=== PATIENT | male | born 1945 | race Caucasian/White ===

== ENCOUNTER → 2016-09-06 | Outpatient (CLI) | payer MEDICARE, BC ==
[2016-09-06 08:56] LABS: ABSOLUTE EOSINOPHILS # (AUTO) 0.2 10^3/uL (0.0-0.6); ABSOLUTE LYMPHOCYTES (AUTO) 0.7 10^3/uL (0.5-4.7); ABSOLUTE MONOCYTES (AUTO) 0.8 10^3/uL (0.1-1.4); ABSOLUTE NEUT (AUTO) 3.2 10^3/uL (1.7-8.2); BASOPHILS % (AUTO) 0.4 % (0-2); EOSINOPHILS % (AUTO) 3.4 % (0-6); HEMATOCRIT 39.2 % (37.9-51.0); HEMOGLOBIN 12.9 g/dL (13.5-17.0); HGB HCT DIFFERENCE -0.5; LYMPHOCYTES % (AUTO) 15.2 % (13-45); MEAN CORPUSCULAR HEMOGLOBIN 30.1 pg (27.0-33.4); MEAN CORPUSCULAR HGB CONC 32.8 g/dL (32.0-36.0); MEAN CORPUSCULAR VOLUME 92 fl (80-97); RED BLOOD COUNT 4.28 10^6/uL (4.35-5.55); RED CELL DISTRIBUTION WIDTH 15.2 % (11.5-14.0); WHITE BLOOD COUNT 4.9 10^3/uL (4.0-10.5)
[2016-09-06 09:20] LABS: ALANINE AMINOTRANSFERASE 40 U/L (21-72); ALBUMIN 3.9 g/dL (3.5-5.0); ALKALINE PHOSPHATASE 93 U/L (38-126); ANION GAP 9 (5-19); ASPARTATE AMINO TRANSFERASE 34 U/L (17-59); BILIRUBIN,DIRECT 0.3 mg/dL (0.0-0.4); BILIRUBIN,TOTAL 0.8 mg/dL (0.2-1.3); BLOOD UREA NITROGEN 21 mg/dL (7-20); CALCIUM 9.6 mg/dL (8.4-10.2); CARBON DIOXIDE 29 mmol/L (22-30); CHLORIDE 100 mmol/L (98-107); CHOLESTEROL 117.51 mg/dL (0-200); CREATININE RESULT 1.07 mg/dL (0.52-1.25); Direct HDL 47 mg/dL (>40); GLUCOSE 109 mg/dL (75-110); POTASSIUM 4.1 mmol/L (3.6-5.0); SODIUM 137.8 mmol/L (137-145); TOTAL PROTEIN 6.3 g/dL (6.3-8.2); TRIGLYCERIDES 110 mg/dL (<150)
[2016-09-06 09:31] LABS: DIRECT LDL 44 mg/dL (<100)
== END ==
LOC: OD 08:20
PROVIDERS: ATTEND Internal Medicine
DX: R53.83 Other fatigue (principal); I10 Essential (primary) hypertension; E78.5 Hyperlipidemia, unspecified; R35.1 Nocturia; C85.90 Non-Hodgkin lymphoma, unspecified, unspecified site
CPT/HCPCS: 36415; 80053; 80061; 84153; 84443; 85025

== ENCOUNTER 2016-09-18 07:13 | Day surgery (SDC) | payer MEDICARE, BC ==
[2016-09-18] MEDS ORDERED: ONDANSETRON HCL INJ/PF 4 MG/2 ML SDV ONE (07:40)
[2016-09-18] MEDS ORDERED: NALOXONE HCL INJ/PF 0.4 MG/1 ML SDV ONE (07:40)
[2016-09-18] MEDS ORDERED: FLUMAZENIL INJ 0.5 MG/5 ML VIAL IV ONE (07:41)
[2016-09-18] MEDS ORDERED: EPINEPHRINE INJ 1 MG/10 ML DISP.SYRIN ONE (07:41)
[2016-09-18] MEDS ORDERED: GLUCAGON,HUMAN RECOMB 1 MG INJ ONE (07:41)
[2016-09-18] MEDS ORDERED: FENTANYL CITRATE INJ/PF 100 MCG/2 ML AMPUL ONE (07:41)
[2016-09-18] MEDS: MIDAZOLAM 2 MG/2 ML INJ ONE ×3 (08:34→08:45)
--- NOTE | 2016-09-18 09:41 | Operative Report ---
Operative Report DATE OF SURGERY: 09/18/16 PREOPERATIVE DIAGNOSIS: Bowel habit changes POSTOPERATIVE DIAGNOSIS: Cecal masses. Sigmoid diverticulosis. OPERATION: Colonoscopy with biopsy of cecal masses. SURGEON: JACKIE MICHAEL ANESTHESIA: Moderate Sedation TISSUE REMOVED OR ALTERED: Cecal masses COMPLICATIONS: None ESTIMATED BLOOD LOSS: Minimal INTRAOPERATIVE FINDINGS: Viable mass at the ileocecal junction and another mass adjacent to it both measuring about 4-5 cm in size. PROCEDURE: Informed consent was obtained. Patient was brought to the endoscopy suite. IV sedation with Versed and fentanyl was administered. Digital rectal exam revealed no palpable perianal masses. Endoscope was passed via the patient's anus it was fed to the cecum. The ileocecal valve appeared very prominent with a masslike effect with friability. The terminal ileum was able to be intubated for about 3 or 4 cm only. The inflammation appeared to extend to the terminal ileum but the more proximal area that I saw appeared relatively normal. But again I could not see much of the terminal ileum. Biopsies were taken at the ileocecal valve. Adjacent to the ileocecal valve there was a similar appearing friable mass. These masses measured about 4-5 cm each. Multiple biopsies were taken. The scope was withdrawn and the remainder of the colon was visualized. The bowel prep was good visualization was good. The right colon, transverse colon, and the descending colon were all normal. Sigmoid colon had scattered diverticuli. Rectum appeared normal. Patient tolerated procedure well with no apparent complications and was taken to the recovery area in stable condition.
--- NOTE | 2016-09-18 09:43 | PDOC DISCHARGE SUMMARY ---
Discharge Summary (SDC) - Discharge Final Diagnosis: Cecal masses Date of Surgery: 09/18/16 Discharge Date: 09/18/16 Condition: Good Treatment or Instructions: Colonoscopy with biopsies. Follow-up with me on Saturday. Discharge Diet: As Tolerated Discharge Activity: Activity As Tolerated Report the Following to Your Physician Immediately: Increase in Pain, Unusual Bleeding
[2016-09-18 10:13] VITALS: BP 115/59
== END 2016-09-18 10:20 | disposition home or self-care (01) ==
LOC: END 07:13
PROVIDERS: ATTEND Surgery
PROC: 0DBH8ZX Excision of Cecum, Via Natural or Artificial Opening Endoscopic, Diagnostic (ICD-10-PCS; principal; 2016-09-18 08:15)
DX: K63.89 Other specified diseases of intestine (principal); K57.30 Diverticulosis of large intestine without perforation or abscess without bleeding; E78.00 Pure hypercholesterolemia, unspecified; I10 Essential (primary) hypertension; Z85.72 Personal history of non-Hodgkin lymphomas; Z79.899 Other long term (current) drug therapy
CPT/HCPCS: 45380; 88342 ×2; 88341 ×2; 88305 ×2; J2250; J3010; J0171; J1610; J2310; J2405; J3490

== ENCOUNTER 2017-09-05 08:18 | Day surgery (SDC) | payer MEDICARE, BC ==
[~2017-09-05 08:18] MED LIST: DIPHENHYDRAMINE HCL 50 MG/ML VIAL ONE; EPINEPHRINE INJ 1 MG/10 ML DISP.SYRIN ONE; FENTANYL CITRATE INJ/PF 100 MCG/2 ML AMPUL ONE; FLUMAZENIL INJ 0.5 MG/5 ML VIAL ONE; GLUCAGON,HUMAN RECOMB 1 MG INJ ONE; MIDAZOLAM 2 MG/2 ML INJ ONE; NALOXONE HCL INJ/PF 0.4 MG/1 ML SDV ONE; ONDANSETRON HCL INJ/PF 4 MG/2 ML SDV ONE
[2017-09-05] MEDS: MIDAZOLAM 2 MG/2 ML INJ ONE ×3 (09:01→09:11)
--- NOTE | 2017-09-05 09:53 | Discharge Summary ---
Discharge Summary (SDC) - Discharge Final Diagnosis: 1. B-cell lymphoma 2. Cecal mass Date of Surgery: 09/05/17 Discharge Date: 09/05/17 Condition: Good Treatment or Instructions: [place] [id number] POST ENDOSCOPY DISCHARGE INSTRUCTIONS 1. Diet: Start clear liquids that a regular diet as tolerated. 2. Resume all preoperative medications. All oral anticoagulants and aspirins can be resumed 24 hours after procedure. 3. If a polypectomy was performed some bleeding per rectum may occur. This should stop within 3 days. If not, please contact the office. 4. If you had a colonoscopy you may experience some bloating and delayed return of normal bowel function for several days, your regular bowel movement pattern should resume within a week. 5. Please contact [facility] at to make an appointment with Dr. Patterson for 1 to 3 weeks following procedure. 6. If you have any questions or concerns regarding your care,treatment plan or follow up, please contact our office. 7. Per clinical guidelines we recommend you undergo a repeat colonoscopy in 3 years or sooner pending final path report. Referrals: ADALBERTO KIM MD [Primary Care Provider] - Discharge Diet: As Tolerated Discharge Activity: Activity As Tolerated Home Care Assistance: None Needed Report the Following to Your Physician Immediately: Shortness of Breath, Increase in Pain, Fever over 101 Degrees
--- NOTE | 2017-09-05 10:07 | Operative Report ---
Operative Report DATE OF SURGERY: 09/05/17 PREOPERATIVE DIAGNOSIS: 1. History of B-cell lymphoma. 2. History of cecal lymphoma POSTOPERATIVE DIAGNOSIS: Same; sigmoid diverticulosis; prominent anal mucosal veins OPERATION: 1. Total colonoscopy to cecum with photodocumentation. 2. Biopsies of ileocecal valve. 3. Biopsies of cecal wall SURGEON: GILL HERNANDEZ ANESTHESIA: Moderate Sedation TISSUE REMOVED OR ALTERED: Biopsies of mucosal COMPLICATIONS: None ESTIMATED BLOOD LOSS: Scant INTRAOPERATIVE FINDINGS: See below PROCEDURE: Obtaining informed consent the patient was taken from the preoperative holding area to the main endoscopy suite where monitoring devices were attached to the patient. Plan and surgical timeout were conducted The patient was placed in the left lateral decubitus position with knees to chest. A perianal examination was performed. There was no visible or palpable anorectal pathology. Sphincter tone was felt to be normal. The flexible pediatric colonoscope was advanced through the anal rectal canal, all the way to the cecum. Visualization of the cecum was achieved and the ileocecal valve as well as transillumination of the anterior abdominal wall. This was an excellent study on the well-prepped bowel. There was bilious drainage coming out of the ileocecal valve. The valve appeared grossly normal. The opposing wall of the cecum was lobulated with friable tissue. Of note 2 weeks ago the patient's platelets were 76. We irrigated and suctioned some residuals cecum and then performed cold forceps biopsies of the inferior side of the ileocecal valve, and 2 biopsies of the lobulated mucosa of the cecal wall. Bleeding was minimal. There was no discrete exophytic mass. The colonoscope was withdrawn slowly and methodically checked and the mucosa carefully. There was no evidence of tumor, stricture, bleeding or polyp. There were scattered diverticulosis of the sigmoid colon The scope was slowly withdrawn through the anal rectal canal. Complete visualization of the rectum was achieved with photodocumentation. The scope was withdrawn to the patient's anus. In the anal canal, the submucosal venous plexus was prominent. The patient tolerated the procedure well and was taken to the recovery area in stable condition. The interval for surveillance colonoscopy will be dictated by the final path report.
[2017-09-05 10:35] VITALS: BP 115/58
== END 2017-09-05 10:45 | disposition home or self-care (01) ==
LOC: END 08:18
PROVIDERS: ATTEND Surgery
DX: K52.9 Noninfective gastroenteritis and colitis, unspecified (principal); R93.3 Abnormal findings on diagnostic imaging of other parts of digestive tract; K57.30 Diverticulosis of large intestine without perforation or abscess without bleeding; C85.90 Non-Hodgkin lymphoma, unspecified, unspecified site; I10 Essential (primary) hypertension; E78.00 Pure hypercholesterolemia, unspecified; R19.8 Other specified symptoms and signs involving the digestive system and abdomen
CPT/HCPCS: 45380; 88305 ×2; J2250; J3010; J0171; J1200; J1610; J2310; J2405; J3490

== ENCOUNTER 2018-02-01 12:01 | Emergency (ER) | payer MEDICARE, BC ==
[2018-02-01] MEDS ORDERED: NORMAL SALINE 1000 ML 1,000 ML IV ONE (13:00)
[2018-02-01] MEDS ORDERED: DEXTROSE 10%-WATER 1,000 ML IV ONE (13:11)
[2018-02-01] MEDS ORDERED: DEXTROSE 50%-WATER 25 GM/50 ML DISP.SYRIN IV ONE ×2 (13:13→13:55)
[2018-02-01] MEDS ORDERED: NORMAL SALINE 500 ML IV PRN (13:56)
--- NOTE | 2018-02-01 14:02 | RADIOLOGY REPORT (SQ) ---
EXAM DESCRIPTION: CHEST SINGLE VIEW COMPLETED DATE/TIME: 02/01/2018 1:14 pm REASON FOR STUDY: Hypoglycemia, recent pneumonia. COMPARISON: 07/12/2014 EXAM PARAMETERS: NUMBER OF VIEWS: One view. TECHNIQUE: Single frontal radiographic view of the chest acquired. RADIATION DOSE: NA LIMITATIONS: None. FINDINGS: LUNGS AND PLEURA: Increased interstitial markings are seen at the lung bases; a retrocardi ac opacity may be present. A small right-sided pleural effusion is present. MEDIASTINUM AND HILAR STRUCTURES: No masses. Contour normal. HEART AND VASCULAR STRUCTURES: Heart normal in size. Normal vasculature. BONES: There appears to be a subacute fracture of the right 7th rib posteriorly. Bilateral acromiocl avicular arthropathy is present. HARDWARE: Re- demonstration the right sided Port-A-Cath. An additional vascular catheter appears to be left subclavian approach ; the tip is not discretely visualized due to under penetration of the ba se of the heart. OTHER: No other significant finding. IMPRESSION: Increased interstitial markings at the lung bases with a possible retrocardiac opacity m ay represent new, residual, or recurrent pneumonia. Other chronic and incidental findings as detaile d above. TECHNICAL DOCUMENTATION: JOB ID: [id number] [employer]- All Rights Reserved Reading location - IP/workstation name: [email or web address]
[2018-02-01 14:09] LABS: APPEARANCE,URINE CLEAR; BILIRUBIN,URINE NEGATIVE (NEGATIVE); COLOR,URINE YELLOW; GLUCOSE, URINE NEGATIVE (NEGATIVE); KETONES,URINE NEGATIVE (NEGATIVE); LEUKOCYTE ESTERASE,URINE NEGATIVE (NEGATIVE); NITRITE,URINE NEGATIVE (NEGATIVE); PROTEIN,URINE NEGATIVE (NEGATIVE); URINE SPECIFIC GRAVITY 1.014; UROBILINOGEN,URINE NEGATIVE mg/dL (<2.0)
[2018-02-01 14:29] LABS: HEMATOCRIT 26.2 % (37.9-51.0); HEMOGLOBIN 8.5 g/dL (13.5-17.0); MEAN CORPUSCULAR HEMOGLOBIN 29.9 pg (27.0-33.4); MEAN CORPUSCULAR HGB CONC 32.7 g/dL (32.0-36.0); MEAN CORPUSCULAR VOLUME 92 fl (80-97); RED BLOOD COUNT 2.86 10^6/uL (4.35-5.55); RED CELL DISTRIBUTION WIDTH 22.3 % (11.5-14.0); WHITE BLOOD COUNT 4.8 10^3/uL (4.0-10.5)
[2018-02-01 14:30] LABS: ALANINE AMINOTRANSFERASE 23 U/L (21-72); ALBUMIN 2.6 g/dL (3.5-5.0); ALKALINE PHOSPHATASE 129 U/L (38-126); ANION GAP 14 (5-19); ASPARTATE AMINO TRANSFERASE 33 U/L (17-59); BILIRUBIN,DIRECT 0.2 mg/dL (0.0-0.4); BILIRUBIN,TOTAL 0.2 mg/dL (0.2-1.3); BLOOD UREA NITROGEN 20 mg/dL (7-20); CALCIUM 8.3 mg/dL (8.4-10.2); CARBON DIOXIDE 25 mmol/L (22-30); CHLORIDE 93 mmol/L (98-107); GLUCOSE 116 mg/dL (75-110); POTASSIUM 4.3 mmol/L (3.6-5.0); SODIUM 131.7 mmol/L (137-145)
[2018-02-01 14:43] LABS: PLATELET COUNT 51 10^3/uL (150-450)
[2018-02-01 14:49] LABS: ABSOLUTE LYMPHOCYTES# (MANUAL) 0.3 10^3/uL (0.5-4.7); ABSOLUTE MONOCYTES # (MANUAL) 0.3 10^3/uL (0.1-1.4); ABSOLUTE NEUTROPHILS# (MANUAL) 4.2 10^3/uL (1.7-8.2); BAND NEUTROPHILS % (MANUAL) 2 % (3-5); BASOPHILS % (MANUAL) 0 % (0-2); EOSINOPHILS % (MANUAL) 0 % (0-6); LYMPHOCYTES % (MANUAL) 6 % (13-45); MONOCYTES % (MANUAL) 6 % (3-13); SEGMENTED NEUTROPHILS % (MAN) 86 % (42-78); TOTAL CELLS COUNTED 100
[2018-02-01 14:54] LABS: ANISOCYTOSIS 3+; BURR CELLS 1+; OVALOCYTES 1+; PLATELET COMMENT DECREASED; POIKILOCYTOSIS 2+; TEAR DROP CELLS SLIGHT; TOXIC GRANULATION 2+
--- NOTE | 2018-02-01 15:25 | ER Document Report ---
ED General - General Chief Complaint: Altered Mental Status Stated Complaint: GENERAL WEAKNESS Time Seen by Provider: 02/01/18 12:57 Notes: Today, patient was acting very agitated and speaking as if he was talking in gibberish and could not communicate with his family members. EMS was called to the scene and found his blood sugar to be 23. Also, on his monitor with EMS, he a run of atrial fibrillation. He was given D10 and his blood sugar came up to 145. Here in this emergency department, his blood sugar dropped back down below and we gave him additional D10 and this happened another time we gave him some D50. Patient is not on any blood lowering medications. Not known to be diabetic. Family thinks it may be that the patient has not been eating and drinking like he is supposed to be. He is supposed to be drinking 3-4 containers of Boost a day in addition to what ever he can eat of regular food. Also, his activity level has increased significantly since he got home in just 2 days ago. Even though he uses a walker, he has been walking around and ambulating much more than he was previously doing. He was fine yesterday. Denies any nausea or vomiting. Has not had any fever. Patient was recently an inpatient at [facility] for 3 weeks with a pneumonia due to Yisel Cardia and also had Norovirus. After a 3-week stay at [facility] for the pneumonia, he was sent to a rehab facility where he spent another 3 weeks and then was released home just 3 days ago. He is still currently on Bactrim and azithromycin. Patient is a survivor from non-Hodgkin's lymphoma. He had stem cell transplant in November 2016. TRAVEL OUTSIDE OF THE [place] IN LAST 30 DAYS: No - Related Data Allergies/Adverse Reactions: Corticosteroids (Glucocorticoids) Allergy (Severe, Verified 02/02/18 06:27) CANNOT HAVE DUE TO EXPERIMENTAL TREATMENT CURRENTLY RECEIVIN promethazine [From Phenergan] Allergy (Intermediate, Verified 02/02/18 06:27) Confusion Past Medical History - Social History Smoking Status: Unknown if Ever Smoked Family History: Reviewed & Not Pertinent Pulmonary Medical History: Reports: Hx Pneumonia Neurological Medical History: Denies: Hx Cerebrovascular Accident Endocrine Medical History: Denies: Hx Diabetes Mellitus Type 1, Hx Diabetes Mellitus Type 2 Malignancy Medical History: Reports Hx Lymphoma - NonHodgkins Musculoskeletal Medical History: Denies Hx Arthritis - Immunizations Hx Diphtheria, Pertussis, Tetanus Vaccination: No Review of Systems - Review of Systems Notes: REVIEW OF SYSTEMS: CONSTITUTIONAL : Denies fever. EENT: Denies eye, ear, nose or mouth or throat pain or other symptoms. CARDIOVASCULAR: Denies chest pain. RESPIRATORY: Denies cough, chest congestion, or shortness of breath. GASTROINTESTINAL: Denies abdominal pain or nausea, vomiting, or diarrhea. GENITOURINARY: Denies difficulty or painful urinating, urinary frequency, blood in urine. MUSCULOSKELETAL: Denies back or neck pain. Denies joint pain or swelling. SKIN: Denies rash or skin lesions. NEUROLOGICAL: See HPI. ALL OTHER SYSTEMS REVIEWED AND NEGATIVE. Physical Exam - Vital signs Vitals: BP 89/66 L 02/01/18 12:05 Interpretation: Normal, Hypotensive - Minimal at 89/66. Responded well to fluids. - Notes Notes: PHYSICAL EXAMINATION: GENERAL: Well-appearing, in no acute distress. Blood pressure at times is borderline with a systolic slightly below 100. HEAD: Atraumatic, normocephalic. EYES: Pupils equal round and reactive to light, extraocular movements intact. ENT: oropharynx clear without exudates. Moist mucous membranes. Hard of hearing. NECK: Normal range of motion, supple. LUNGS: Breath sounds clear and equal bilaterally. HEART: Regular rate and rhythm without murmurs. ABDOMEN: Soft, nontender. No guarding or rebound. No masses. BACK: No tenderness throughout entire back. EXTREMITIES: Normal range of motion without pain. NEUROLOGICAL: Hard of hearing. Normal sensory, motor, and reflex exams. Awake , alert, and oriented x3. PSYCH: Normal mood, normal affect. SKIN: Warm, dry, no rashes. Course - Re-evaluation Re-evalutation: 02/01/18 21:58 Patient was able to drink a container of Boost and drank a couple of cups of orange juice. After that, his blood sugars stabilized and did not drop any more. Patient's vital signs were now normal with a blood pressure above 100 systolic. Family is comfortable that the patient has improved and stabilized. They feel that his low blood sugars related to his poor oral intake and his unusual activity level compared to his recent activities. No evidence of any significant infections anywhere. - Vital Signs Vital signs: Temp Pulse Resp BP Pulse Ox 98.1 F 82 16 98/60 L 100 02/01/18 15:55 02/01/18 15:55 02/01/18 15:55 02/01/18 15:55 02/01/18 15:55 - Laboratory Result Diagrams: 02/01/18 12:15 02/01/18 12:15 Laboratory results interpreted by me: 02/01/18 02/01/18 02/01/18 12:15 12:15 13:08 RBC 2.86 L Hgb 8.5 L Hct 26.2 L RDW 22.3 H Plt Count 51 L Seg Neuts % (Manual) 86 H Band Neutrophils % 2 L Lymphocytes % (Manual) 6 L Abs Lymphs (Manual) 0.3 L Sodium 131.7 L Chloride 93 L Creatinine 1.34 H Est GFR (Non-Af Amer) 53 L Glucose 116 H POC Glucose 46 L Calcium 8.3 L Alkaline Phosphatase 129 H Total Protein 5.0 L Albumin 2.6 L 02/01/18 02/01/18 14:04 15:27 RBC Hgb Hct RDW Plt Count Seg Neuts % (Manual) Band Neutrophils % Lymphocytes % (Manual) Abs Lymphs (Manual) Sodium Chloride Creatinine Est GFR (Non-Af Amer) Glucose POC Glucose 138 H 117 H Calcium Alkaline Phosphatase Total Protein Albumin - Diagnostic Test Radiology results interpreted by me: 02/01/18 21:59 Chest x-ray is essentially normal. Some scar tissue present. No acute infiltrates. Discharge - Discharge Clinical Impression: Hypoglycemia, Dehydration Hypotension Qualifiers: Hypotension type: unspecified hypotension type Qualified Code(s): I95.9 - Hypotension, unspecified Condition: Stable Disposition: HOME, SELF-CARE Additional Instructions: Hypoglycemia You have suffered an episode of hypoglycemia (low blood sugar). Typical symptoms of hypoglycemia are shaking, sweating, headache, and confusion. When severe, unconsciousness or seizure may occur. Hypoglycemia occurs when a person taking insulin or diabetes pills has a change in the amount of blood sugar available -- due to exercise, decreased food intake, or alcohol. Should you feel symptoms of hypoglycemia again, immediately take some form of sugar such as sweetened juice. As the reaction subsides, eat a complex carbohydrate such as bread. If possible, check your blood sugar using a chemical strip. If episodes are occurring without obvious explanation, contact your physician for further evaluation. Dehydration Dehydration can result from vomiting or diarrhea, fever, or decreased intake of fluids. If severe, hospitalization and intravenous fluids may be required. Most cases are treated at home with fluids by mouth. For the next 24 hours, drink lots of clear fluids. In mild cases, this can be soda pop or sports drinks. For more severe dehydration, the doctor may recommend special fluids such as Pedialyte or Lytren. Try to get three liters ( 3 quarts) of fluid per day. If vomiting occurs, continue to drink the fluids frequently (every 15 to 20 minutes), but in small amounts (one or two ounces). Depending on the type of dehydration, the doctor may prescribe antinausea medicine or potassium replacements. Call the doctor or return for re-examination if you become progressively weak, vomit repeatedly, or have other new symptoms. Hypotension Your blood pressure is low. Low blood pressure can make you feel weak, lightheaded, and even make you pass out. Low blood pressure can be caused by dehydration or blood loss. Problems with the heart, kidneys, or blood vessels can cause hypotension. Certain medications can make your blood pressure abnormally low. Infection can lower blood pressure. In many cases, the person is totally healthy, but for unknown reasons, the blood pressure falls when they stand up. This is called benign orthostatic hypotension. The treatment of low blood pressure depends on the severity of the symptoms , and on the underlying cause. Sometimes it's not possible to identify a cause. At this time, it doesn't appear that the problem is serious enough to require hospitalization. Medicines that could be contributing to the problem can be withheld or reduced in dosage if your doctor approves. Get plenty of fluids. Eat a healthy diet. Be careful to stand up slowly. If you feel suddenly lightheaded or if your vision goes corona, sit or lie down at once. Don't drive or operate machinery until the symptoms are under control. Return or call the doctor if you develop fainting or severe dizziness, severe weakness, problems with vision, chest pain, shortness of breath, fever, or confusion. FOLLOW-UP CARE: If you have been referred to a physician for follow-up care, call the physician s office for an appointment as you were instructed or within the next two days. If you experience worsening or a significant change in your symptoms, notify the physician immediately or return to the Emergency Department at any time for re-evaluation. Drink plenty of fluids, especially fluids with sugar in them. Discontinue taking the 20 mg of Lasix at bedtime. Continue to take all of the other medications you are currently taking Follow-up with your doctor on Saturday with all the lab results that I have provided to you. Return if you develop new symptoms or worsening symptoms or current drops in blood sugar. Referrals: ADALBERTO KIM MD [Primary Care Provider] - Follow up as needed
[2018-02-01 15:57] VITALS: BP 98/60
--- NOTE | 2018-02-01 22:41 | EKG REPORT ---
SEVERITY:- BORDERLINE ECG - SINUS RHYTHM BORDERLINE T WAVE ABNORMALITIES : Confirmed by: Carlos Boo MD 01-Feb-2018 22:40:48
== END 2018-02-01 15:55 | disposition home or self-care (01) ==
LOC: ER 12:01
DX: E16.2 Hypoglycemia, unspecified (principal); I95.9 Hypotension, unspecified; E86.0 Dehydration; J15.8 Pneumonia due to other specified bacteria; Z85.72 Personal history of non-Hodgkin lymphomas; Z88.8 Allergy status to other drugs, medicaments and biological substances
CPT/HCPCS: 93005; 99285; 96361; 96374; 36415; 82962; 85025; 80053; 81001; 71045; 93010; J3490; J7040

== ENCOUNTER 2018-02-02 05:45 | Emergency (ER) | payer MEDICARE, BC ==
[2018-02-02] MEDS ORDERED: NORMAL SALINE 1000 ML 1,000 ML IV ONE ×2 (06:17→07:08)
--- NOTE | 2018-02-02 06:23 | ER Document Report ---
ED General - General Chief Complaint: Low Blood Sugar Stated Complaint: LOW BLOOD SUGAR Time Seen by Provider: 02/02/18 06:04 Notes: 72-year-old male brought to the emergency department for hypoglycemia. He was seen in the emergency department yesterday for similar. Patient's states that he was talking "gibberish" yesterday when glucose noted to be low. Today he was difficult to arouse. She checked his blood sugar and found it to be 29. She states that she gave some sugar. EMS was contacted. When they arrived 10 g of dextrose was given. Blood sugar was rechecked and found to be 79. An additional 25 g of dextrose was given. Family states that the patient has not been eating like he supposed to. He'll have a few ensure per day but isn't supplementing with food. Patient has a history of non-Hodgkin's lymphoma and is being followed up at [facility] by Dr. Phan, oncology. states that the patient was recently inpatient for 3 weeks for pneumonia. [facility]. He was just released to home 3 days ago. 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 denies a history of diabetes. He is not on any diabetic medications. Patient was found to be in atrial fibrillation on arrival. states no history of atrial fibrillation. TRAVEL OUTSIDE OF THE [place] IN LAST 30 DAYS: No - HPI Onset: Just prior to arrival Onset/Duration: Sudden Quality of pain: No pain Severity: Severe Associated symptoms: None Exacerbated by: Denies Relieved by: Food Similar symptoms previously: Yes Recently seen / treated by doctor: Yes - Related Data Allergies/Adverse Reactions: Corticosteroids (Glucocorticoids) Allergy (Severe, Verified 02/02/18 06:27) CANNOT HAVE DUE TO EXPERIMENTAL TREATMENT CURRENTLY RECEIVIN promethazine [From Phenergan] Allergy (Intermediate, Verified 02/02/18 06:27) Confusion Past Medical History - General Information source: Patient - Social History Smoking Status: Former Smoker Family History: Reviewed & Not Pertinent - Past Medical History Cardiac Medical History: Reports: Hx Hypercholesterolemia Denies: Hx Coronary Artery Disease, Hx Heart Attack, Hx Hypertension - 2005 Pulmonary Medical History: Reports: Hx Pneumonia - nocardia Denies: Hx Asthma, Hx Bronchitis, Hx COPD Neurological Medical History: Denies: Hx Cerebrovascular Accident, Hx Seizures Renal/ Medical History: Denies: Hx Peritoneal Dialysis Musculoskeletal Medical History: Denies Hx Arthritis Past Surgical History: Reports: Hx Appendectomy, Hx Tonsillectomy - Immunizations Hx Diphtheria, Pertussis, Tetanus Vaccination: No Review of Systems - Review of Systems Constitutional: No symptoms reported EENT: No symptoms reported Cardiovascular: No symptoms reported Respiratory: No symptoms reported Gastrointestinal: No symptoms reported Genitourinary: No symptoms reported Male Genitourinary: No symptoms reported Musculoskeletal: No symptoms reported Skin: No symptoms reported Hematologic/Lymphatic: No symptoms reported Neurological/Psychological: Other - altered mental status -: Yes All other systems reviewed and negative Physical Exam - Vital signs Vitals: Temp Pulse Resp BP Pulse Ox 97.9 F 140 H 36 H 92/65 L 94 02/02/18 05:47 02/02/18 05:47 02/02/18 05:47 02/02/18 05:47 02/02/18 05:47 - Notes Notes: PHYSICAL EXAMINATION: GENERAL: Frail. Cachetic. HEAD: Atraumatic, Orientated to person and place. EYES: Pupils equal round and reactive to light, extraocular movements intact, sclera anicteric, conjunctiva are normal. ENT: Nares patent, oropharynx clear without exudates. Moist mucous membranes. NECK: Normal range of motion, supple without lymphadenopathy LUNGS: Breath sounds clear to auscultation bilaterally and equal. No wheezes rales or rhonchi. HEART: Regular rate and rhythm without murmurs ABDOMEN: Soft, nontender, nondistended abdomen. No guarding, no rebound. No masses appreciated. Musculoskeletal: Normal range of motion, no pitting or edema. No cyanosis. NEUROLOGICAL: Cranial nerves grossly intact. Normal speech, normal gait. Normal sensory, motor exams PSYCH: Normal mood, normal affect. SKIN: Warm, Dry, normal turgor, no rashes or lesions noted. Course - Re-evaluation Re-evalutation: 02/02/18 06:23 EKG: Ventricular rate 143, QRS duration 92, QTc 457, atrial fibrillation. No ST segment elevation. 02/02/18 07:32 Blood sugar rechecked. Now in the 50s. 1amp of D50 ordered. 02/02/18 10:12 Patient drank orange juice and ensure. Blood sugar now in the 170s. Patient given 2L of fluids and 15mg of cardizem for atrial fibrillation. Patient now rate controlled in the 90s. Has been hypotensive around 90-100 systolic. Patient more awake, alert per family. Contacted [facility] for transfer per patient request and lack of GI coverage. Spoke with Dr. Gaines. She's agreeable with accepting the transfer. Patient currently stable. 02/02/18 10:46 02/02/18 15:52 Patient currently eating [employer] in the room. Family state that he's acting like his normal self now. Patient has no complaints. Accuchecks have been obtained regularly and have been within normal limits. The patient's heart rate has been controlled after 15mg of cardizem. Still borderline hypotensive. Patient has a bed at [facility]. Transport arranged. Patient turned over to Dr. Stewart. 02/02/18 16:00 - Vital Signs Vital signs: Temp Pulse Resp BP Pulse Ox 98.5 F 91 23 H 94/55 L 94 02/02/18 11:38 02/02/18 14:00 02/02/18 15:43 02/02/18 14:00 02/02/18 15:43 - Laboratory Result Diagrams: 02/02/18 06:20 02/02/18 06:20 Laboratory results interpreted by me: 02/02/18 02/02/18 02/02/18 06:20 06:20 07:30 RBC 2.87 L Hgb 8.6 L Hct 26.7 L RDW 23.1 H Plt Count 46 L Seg Neuts % (Manual) 81 H Lymphocytes % (Manual) 8 L Sodium 130.4 L Chloride 91 L BUN 23 H Creatinine 1.26 H Est GFR (Non-Af Amer) 57 L POC Glucose 53 L Alkaline Phosphatase 132 H Total Protein 5.2 L Albumin 2.9 L Urine Protein 02/02/18 02/02/18 02/02/18 08:07 09:07 09:40 RBC Hgb Hct RDW Plt Count Seg Neuts % (Manual) Lymphocytes % (Manual) Sodium Chloride BUN Creatinine Est GFR (Non-Af Amer) POC Glucose 64 L 139 H Alkaline Phosphatase Total Protein Albumin Urine Protein 30 H 02/02/18 02/02/18 02/02/18 10:37 11:30 12:56 RBC Hgb Hct RDW Plt Count Seg Neuts % (Manual) Lymphocytes % (Manual) Sodium Chloride BUN Creatinine Est GFR (Non-Af Amer) POC Glucose 138 H 127 H 128 H Alkaline Phosphatase Total Protein Albumin Urine Protein Discharge - Discharge Clinical Impression: Hypoglycemia, Lower GI bleed Atrial fibrillation Qualifiers: Atrial fibrillation type: unspecified Qualified Code(s): I48.91 - Unspecified atrial fibrillation Hypotension Qualifiers: Hypotension type: unspecified hypotension type Qualified Code(s): I95.9 - Hypotension, unspecified Condition: Stable Disposition: [facility] Referrals: ADALBERTO KIM MD [Primary Care Provider] - Follow up as needed
[2018-02-02 06:50] LABS: HEMATOCRIT 26.7 % (37.9-51.0); HEMOGLOBIN 8.6 g/dL (13.5-17.0); MEAN CORPUSCULAR HGB CONC 32.2 g/dL (32.0-36.0); MEAN CORPUSCULAR VOLUME 93 fl (80-97); RED BLOOD COUNT 2.87 10^6/uL (4.35-5.55); RED CELL DISTRIBUTION WIDTH 23.1 % (11.5-14.0); WHITE BLOOD COUNT 7.8 10^3/uL (4.0-10.5)
[2018-02-02] MEDS ORDERED: DILTIAZEM HCL/D5W 125 MG/125 ML RTUINJ IV PRN (06:52)
[2018-02-02] MEDS ORDERED: DILTIAZEM HCL INJ 25 MG/5 ML VIAL IV ONE (06:52)
[2018-02-02 06:56] LABS: ALANINE AMINOTRANSFERASE 24 U/L (21-72); ALBUMIN 2.9 g/dL (3.5-5.0); ALKALINE PHOSPHATASE 132 U/L (38-126); ANION GAP 15 (5-19); ASPARTATE AMINO TRANSFERASE 36 U/L (17-59); BILIRUBIN,DIRECT 0.3 mg/dL (0.0-0.4); BILIRUBIN,TOTAL 0.3 mg/dL (0.2-1.3); BLOOD UREA NITROGEN 23 mg/dL (7-20); CALCIUM 8.4 mg/dL (8.4-10.2); CARBON DIOXIDE 24 mmol/L (22-30); CHLORIDE 91 mmol/L (98-107); GLUCOSE 100 mg/dL (75-110); SODIUM 130.4 mmol/L (137-145); TOTAL PROTEIN 5.2 g/dL (6.3-8.2)
--- NOTE | 2018-02-02 07:20 | RADIOLOGY REPORT (SQ) ---
EXAM DESCRIPTION: X-ray single view chest. CLINICAL HISTORY: 72 years Male, cough COMPARISON: 02/01/2018 and 07/12/2014. TECHNIQUE: Single portable view of the chest performed on 02/02/2018 at 6:55 AM FINDINGS: When compared to the most recent prior study there has been no significant interval change. The lungs are well expanded. There is volume loss in the lung bases which may be due to a combination of pleural fluid and atelectasis. Underlying pneumonia is not excluded. There is no evidence of a pneumothorax. The cardiac silhouette is normal in size and configuration. There is prominence of the central pulmonary vessels which may reflect vascular congestion. No acute osseous abnormality is identified. There is a healing fracture of the posterior right seventh rib and possibly right eighth rib. No focal soft tissue abnormalities are seen. Lines and tubes: There is a stable right IJ central venous catheter. The tip appears to terminate in the region of the cavoatrial junction. The left subclavian central venous catheter tip appears to overlie the region of the right atrium. IMPRESSION: 1. No significant interval change when compared to the most recent study. There is persistent, grossly stable bibasilar volume loss. 2. Mild central vascular congestion. 3. Grossly stable life support lines and tubes.
[2018-02-02] MEDS ORDERED: DILTIAZEM HCL/D5W 125 MG/125 ML RTUINJ IV ONE (07:21)
[2018-02-02] MEDS ORDERED: DEXTROSE 50%-WATER 25 GM/50 ML DISP.SYRIN IV ONE ×3 (07:31→09:09)
[2018-02-02 07:39] LABS: PLATELET COUNT 46 10^3/uL (150-450)
[2018-02-02 07:42] LABS: ABSOLUTE LYMPHOCYTES# (MANUAL) 0.6 10^3/uL (0.5-4.7); ABSOLUTE MONOCYTES # (MANUAL) 0.9 10^3/uL (0.1-1.4); ABSOLUTE NEUTROPHILS# (MANUAL) 6.3 10^3/uL (1.7-8.2); BASOPHILS % (MANUAL) 0 % (0-2); EOSINOPHILS % (MANUAL) 0 % (0-6); LYMPHOCYTES % (MANUAL) 8 % (13-45); MONOCYTES % (MANUAL) 11 % (3-13); SEGMENTED NEUTROPHILS % (MAN) 81 % (42-78); TOTAL CELLS COUNTED 100
[2018-02-02 07:49] LABS: ANISOCYTOSIS 3+; OVALOCYTES 1+; POIKILOCYTOSIS 2+; POLYCHROMASIA SLIGHT; SCHISTOCYTES 1+; TEAR DROP CELLS SLIGHT
[2018-02-02 07:50] LABS: PLATELET COMMENT DECREASED
--- NOTE | 2018-02-02 08:11 | EKG REPORT ---
SEVERITY:- ABNORMAL ECG - ATRIAL FIBRILLATION BORDERLINE T ABNORMALITIES, INFERIOR LEADS : Confirmed by: Carlos Boo MD 02-Feb-2018 08:10:36
[2018-02-02 08:42] LABS: APPEARANCE,URINE SLIGHTLY-CLOUDY; BILIRUBIN,URINE NEGATIVE (NEGATIVE); COLOR,URINE YELLOW; GLUCOSE, URINE NEGATIVE (NEGATIVE); KETONES,URINE NEGATIVE (NEGATIVE); LEUKOCYTE ESTERASE,URINE NEGATIVE (NEGATIVE); NITRITE,URINE NEGATIVE (NEGATIVE); PROTEIN,URINE 30 mg/dL (NEGATIVE); URINE SPECIFIC GRAVITY 1.013; UROBILINOGEN,URINE NEGATIVE mg/dL (<2.0)
--- NOTE | 2018-02-02 09:12 | RADIOLOGY REPORT (SQ) ---
EXAM DESCRIPTION: CT HEAD WITHOUT COMPLETED DATE/TIME: 02/02/2018 8:55 am REASON FOR STUDY: ams COMPARISON: None. TECHNIQUE: Axial images acquired through the brain without intravenous contrast. Images reviewed wi th bone, brain and subdural windows. Additional sagittal and coronal reconstructions were generated. Images stored on PACS. All CT scanners at this facility use dose modulation, iterative reconstruction, and/or weight based d osing when appropriate to reduce radiation dose to as low as reasonably achievable (ALARA). [facility]: Dose Right [facility]: CareDose [facility]: Dose Right [facility]: Teradose 4D [facility]: [place] RADIATION DOSE: CT Rad equipment meets quality standard of care and radiation dose reduction techniq ues were employed. CTDIvol: 53.2 mGy. DLP: 2194 mGy-cm. mGy. LIMITATIONS: None. FINDINGS: VENTRICLES: Normal size and contour. CEREBRUM: No masses. No hemorrhage. No midline shift. No evidence for acute infarction. Normal gra y/white matter differentiation. No areas of low density in the white matter. CEREBELLUM: No masses. No hemorrhage. No alteration of density. No evidence for acute infarction. EXTRAAXIAL SPACES: No fluid collections. No masses. ORBITS AND GLOBE: No intra- or extraconal masses. Normal contour of globe without masses. CALVARIUM: No fracture. PARANASAL SINUSES: No fluid or mucosal thickening. SOFT TISSUES: No mass or hematoma. OTHER: No other significant finding. IMPRESSION: NORMAL BRAIN CT WITHOUT CONTRAST. EVIDENCE OF ACUTE STROKE: NO. COMMENT: Quality ID # [id number]: Final reports with documentation of one or more dose reduction techniques (e.g., Automated exposure control, adjustment of the mA and/or kV according to patient size, use of iterative reconstruction technique) TECHNICAL DOCUMENTATION: JOB ID: [id number] [employer]- All Rights Reserved Reading location - IP/workstation name: [email or web address]
[2018-02-02 09:26] LABS: URINE AMPHETAMINES SCREEN NEGATIVE; URINE BARBITURATES SCREEN NEGATIVE; URINE BENZODIAZEPINES SCREEN NEGATIVE; URINE COCAINE SCREEN NEGATIVE; URINE MARIJUANA (THC) SCREEN NEGATIVE; URINE METHADONE SCREEN NEGATIVE; URINE PHENCYCLIDINE SCREEN NEGATIVE
[2018-02-02 20:36] VITALS: BP 97/48
== END 2018-02-02 20:00 | disposition short-term general hospital (02) ==
LOC: ER 05:45
DX: E16.2 Hypoglycemia, unspecified (principal); K92.2 Gastrointestinal hemorrhage, unspecified; I95.9 Hypotension, unspecified; I48.91 Unspecified atrial fibrillation; E78.00 Pure hypercholesterolemia, unspecified
CPT/HCPCS: 93005; 99285; 96361; 96374; 36415; 87040; 82962; 85025; 82272; 80053; 81001; 84484; 80307; 71045; 70450; 93010; J3490 ×2; J7030

== ENCOUNTER 2018-04-15 07:56 | Emergency (ER) | payer MEDICARE, BC ==
[2018-04-15] MEDS ORDERED: CEFEPIME INJ 1 GM VIAL IM ONE (08:08)
[2018-04-15] MEDS ORDERED: NORMAL SALINE 1000 ML 1,000 ML IV ONE (08:08)
[2018-04-15] MEDS ORDERED: VANCOMYCIN HCL INJ 1000 MG VIAL IV ONE (08:08)
--- NOTE | 2018-04-15 08:13 | ER Document Report ---
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 History of cytopenias myelodysplastic syndrome and recent transfusions. Increased cough from baseline, weak but no fever. Known immune compromise white cells 1.3 as of 1 week ago. Intensive for EMS. Hypoglycemic for EMS. TRAVEL OUTSIDE OF THE [place] IN LAST 30 DAYS: No - Related Data Allergies/Adverse Reactions: Corticosteroids (Glucocorticoids) Allergy (Severe, Verified 02/02/18 06:27) CANNOT HAVE DUE TO EXPERIMENTAL TREATMENT CURRENTLY RECEIVIN promethazine [From Phenergan] Allergy (Intermediate, Verified 02/02/18 06:27) Confusion Past Medical History - General Information source: Patient - Social History Smoking Status: Unknown if Ever Smoked Family History: Reviewed & Not Pertinent - Past Medical History Cardiac Medical History: Reports: Hx Hypercholesterolemia Denies: Hx Coronary Artery Disease, Hx Heart Attack, Hx Hypertension - 2005 Pulmonary Medical History: Reports: Hx Pneumonia - nocardia Denies: Hx Asthma, Hx Bronchitis, Hx COPD Neurological Medical History: Denies: Hx Cerebrovascular Accident, Hx Seizures Renal/ Medical History: Denies: Hx Peritoneal Dialysis Musculoskeletal Medical History: Denies Hx Arthritis Past Surgical History: Reports: Hx Appendectomy, Hx Tonsillectomy - Immunizations Hx Diphtheria, Pertussis, Tetanus Vaccination: No Review of Systems - Review of Systems Notes: REVIEW OF SYSTEMS GEN: Weakness ENT: Denies sore throat, nasal discharge, ear pain EYES: Denies blurry vision, eye pain, discharge CV: Denies chest pain, palpitations, edema RESP: Cough shortness of breath GI: Denies abdominal pain, nausea, vomiting, diarrhea MSK: Denies joint pain/swelling, edema, SKIN: Denies rash, skin lesions LYMPH: Denies swollen glands/lymph nodes NEURO: Denies headache, focal weakness or numbness, dizziness PSYCH: Denies depression, suicidal or homicidal ideation PHYSICAL EXAMINATION : [place] appears dehydrated and weak Head: Atraumatic, normocephalic ENT: Mouth normal, oropharynx moist, no exudates or tonsillar enlargement Eyes: Conjunctiva normal, pupils equal, lids normal Neck: No JVD, supple, no guarding CVS: Normal rate, regular rhythm, no murmurs Resp: No resp distress, decreased right-sided breath sounds, tachypnea, speaks in 3 word sentences small port nontender. GI: Nondistended, soft, no tenderness to palpation, no rebound or guarding Ext: No deformities, no edema, normal range of motion in upper and lower ext Back: No CVA or midline TTP Skin: No rash, warm Lymphatic: No lymphadeopathy noted Neuro: Awake, alert. Face symmetric. GCS 15. 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 Hypotensive prior to ED presentation. Sepsis workupincluding fluids cefepime and vancomycin were initiated immediately. Will get chest x-ray. Obtain blood cultures and lactic. 04/15/18 09:35 X-ray shows right-sided pleural effusion. Treat for pneumonia. Cefepime vancomycin was ordered. Tamiflu empirically. Flu test ordered. Patient was neutropenic recently but his labs are still not back. Given 1 L fluidblood pressure has improved. Discussed with [facility] transfer leonard, discussed with Dr. Thompson from hematology oncology who accepts transfer. - Vital Signs Vital signs: Temp Pulse Resp BP Pulse Ox 97.2 F 23 H 117/58 L 96 04/15/18 08:17 04/15/18 08:53 04/15/18 08:53 04/15/18 08:53 - Laboratory Result Diagrams: 04/15/18 08:03 04/15/18 08:03 Laboratory results interpreted by me: 04/15/18 04/15/18 08:03 08:24 PT 17.7 H Sodium 135.9 L BUN 21 H Glucose 112 H Total Protein 4.5 L Albumin 2.4 L - EKG Interpretation by Pa EKG shows normal: Sinus rhythm Rate: Normal Rhythm: NSR - Prior: No longer in rapid A. fib Critical Care Note - Critical Care Note Total time excluding time spent on procedures (mins): 35 Comments: The above patient is critically ill. Not including procedures, but including direct re-evaluations, speaking with patient and/or consultants, interpreting results, and documenting, I spent the total amount of minute listed listed above on critical care time Discharge - Discharge Clinical Impression: Sepsis Qualifiers: Sepsis type: sepsis due to unspecified organism Qualified Code(s): A41.9 - Sepsis, unspecified organism Neutropenia Qualifiers: Neutropenia type: unspecified Qualified Code(s): D70.9 - Neutropenia, unspecified Condition: Fair Disposition: [facility] Referrals: ADALBERTO KIM MD [Primary Care Provider] - Follow up as needed
[2018-04-15] MEDS ORDERED: CEFEPIME 2 GM/D5W RTU 2 GM/50 ML RTUPB IV ONE (08:15)
[2018-04-15 08:17] LABS: VENOUS BLOOD BASE EXCESS 1.4 mmol/L; VENOUS BLOOD PCO2 60.9 mmHg (35-63); VENOUS BLOOD PH 7.3 (7.30-7.42)
[2018-04-15 08:23] LABS: HEMOGLOBIN 11.3 g/dL (13.5-17.0); MEAN CORPUSCULAR HEMOGLOBIN 28.1 pg (27.0-33.4); MEAN CORPUSCULAR HGB CONC 31.5 g/dL (32.0-36.0); MEAN CORPUSCULAR VOLUME 89 fl (80-97); RED BLOOD COUNT 4.03 10^6/uL (4.35-5.55); RED CELL DISTRIBUTION WIDTH 22.8 % (11.5-14.0)
[2018-04-15 08:27] LABS: WHITE BLOOD COUNT 1.8 10^3/uL (4.0-10.5)
[2018-04-15 08:35] LABS: ALANINE AMINOTRANSFERASE 32 U/L (21-72); ALBUMIN 2.4 g/dL (3.5-5.0); ALKALINE PHOSPHATASE 81 U/L (38-126); ANION GAP 5 (5-19); ASPARTATE AMINO TRANSFERASE 27 U/L (17-59); BILIRUBIN,DIRECT 0.3 mg/dL (0.0-0.4); BILIRUBIN,TOTAL 0.8 mg/dL (0.2-1.3); BLOOD UREA NITROGEN 21 mg/dL (7-20); CALCIUM 8.4 mg/dL (8.4-10.2); CARBON DIOXIDE 29 mmol/L (22-30); CHLORIDE 102 mmol/L (98-107); GLUCOSE 112 mg/dL (75-110); SODIUM 135.9 mmol/L (137-145); TOTAL PROTEIN 4.5 g/dL (6.3-8.2)
--- NOTE | 2018-04-15 08:41 | RADIOLOGY REPORT (SQ) ---
EXAM DESCRIPTION: CHEST SINGLE VIEW COMPLETED DATE/TIME: 04/15/2018 8:27 am REASON FOR STUDY: Short of breath decreased right lung sounds COMPARISON: 02/02/2018 EXAM PARAMETERS: NUMBER OF VIEWS: One view. TECHNIQUE: Single frontal radiographic view of the chest acquired. RADIATION DOSE: NA LIMITATIONS: None. FINDINGS: LUNGS AND PLEURA: There is a large right pleural effusion and associated atelectasis or co nsolidation, significantly increased from prior examination. MEDIASTINUM AND HILAR STRUCTURES: No masses. Contour normal. HEART AND VASCULAR STRUCTURES: Heart normal in size. Normal vasculature. BONES: No acute findings. HARDWARE: None in the chest. OTHER: Right neck port catheter, left neck vascular catheter. IMPRESSION: There is a large right pleural effusion and associated atelectasis or consolidation, sig nificantly increased from prior examination. Consider CT to evaluate for underlying mass or pleural malignancy. TECHNICAL DOCUMENTATION: JOB ID: [id number] [employer]- All Rights Reserved Reading location - IP/workstation name: [email or web address]
[2018-04-15] MEDS ORDERED: OSELTAMIVIR PHOSPHATE 75 MG CAPSULE PO ONE (08:53)
[2018-04-15 09:04] LABS: INTERNATIONAL RATION (INR) 1.39; PROTHROMBIN TIME 17.7 SEC (11.4-15.4)
[2018-04-15 09:35] LABS: ABSOLUTE LYMPHOCYTES# (MANUAL) 0.5 10^3/uL (0.5-4.7); ABSOLUTE MONOCYTES # (MANUAL) 0.3 10^3/uL (0.1-1.4); BAND NEUTROPHILS % (MANUAL) 2 % (3-5); BASOPHILS % (MANUAL) 0 % (0-2); EOSINOPHILS % (MANUAL) 0 % (0-6); LYMPHOCYTES % (MANUAL) 26 % (13-45); MONOCYTES % (MANUAL) 16 % (3-13); NUCLEATED RED BLOOD CELLS 2 /100 WBC (0); SEGMENTED NEUTROPHILS % (MAN) 52 % (42-78); TOTAL CELLS COUNTED 50
[2018-04-15 10:01] LABS: ANISOCYTOSIS 3+; BURR CELLS 1+; OVALOCYTES SLIGHT; POIKILOCYTOSIS 2+; SCHISTOCYTES 2+; TEAR DROP CELLS SLIGHT
[2018-04-15 10:02] LABS: PLATELET COMMENT DECREASED; PLATELET COUNT 29 10^3/uL (150-450)
[2018-04-15] MEDS ORDERED: DILTIAZEM HCL INJ 25 MG/5 ML VIAL IV ONE (10:55)
[2018-04-15 11:03] LABS: APPEARANCE,URINE CLEAR; BILIRUBIN,URINE NEGATIVE (NEGATIVE); CALCIUM OXALATE CRYSTALS,URINE FEW /HPF; COLOR,URINE YELLOW; GLUCOSE, URINE NEGATIVE (NEGATIVE); KETONES,URINE NEGATIVE (NEGATIVE); LEUKOCYTE ESTERASE,URINE NEGATIVE (NEGATIVE); NITRITE,URINE NEGATIVE (NEGATIVE); PROTEIN,URINE NEGATIVE (NEGATIVE); URINE SPECIFIC GRAVITY 1.016; UROBILINOGEN,URINE NEGATIVE mg/dL (<2.0)
[2018-04-15] MEDS: DILTIAZEM HCL/D5W 125 MG/125 ML RTUINJ IV PRN ×3 (11:17→23:23)
[2018-04-15 12:03] LABS: A TYPE INFLUENZA AG NEGATIVE (NEGATIVE); B INFLUENZA AG NEGATIVE (NEGATIVE)
[2018-04-15] MEDS ORDERED: CALCIUM GLUCONATE 1000 MG/10 ML INJ IV ONE (12:52)
--- NOTE | 2018-04-15 18:00 | EKG REPORT ---
SEVERITY:- OTHERWISE NORMAL ECG - SINUS TACHYCARDIA LOW VOLTAGE IN FRONTAL LEADS : Confirmed by: Nadege Connolly MD 15-Apr-2018 18:00:20
[2018-04-15 23:18] VITALS: BP 104/47
--- NOTE | 2018-04-15 23:24 | ER Document Report ---
Doctor's Note Notes: 04/15/18 23:23 Transport is here for the patient. I went in to visit with him. He does have a congested cough, but otherwise he feels well and is comfortable at this time. His vital signs are stable. He is stable for transport.
[2018-04-16 13:00] LABS: PATH REVIEW PATHOLOGIST REVIEWED
== END 2018-04-15 23:35 | disposition short-term general hospital (02) ==
LOC: ER 07:56
DX: A41.9 Sepsis, unspecified organism (principal); I48.91 Unspecified atrial fibrillation; J18.9 Pneumonia, unspecified organism; J90 Pleural effusion, not elsewhere classified; C85.10 Unspecified B-cell lymphoma, unspecified site; D70.9 Neutropenia, unspecified; R05 Cough; R06.02 Shortness of breath; Z88.8 Allergy status to other drugs, medicaments and biological substances
CPT/HCPCS: 93005; 36591; 99291; 96365; 96366; 96367; 96368; 36415; 87040; 87086; 82962; 85025; 85610; 80053; 81001; 82803; 83605; 87804; 71045; 93010; J0610; J3490 ×2; J7030; J3370; J0692